=== PATIENT | male | born 1955 | race Caucasian/White ===

== ENCOUNTER 2022-07-14 11:06 | Emergency (ER) | payer OTHER, MEDICARE, SELFPAY ==
[2022-07-14] VITALS (14 sets, daily range): BP systolic 159–186; BP diastolic 77–84; PULSE 57–77; RESP 13–26; TEMP 36.7; O2SAT 93–97; BMI 37.8
--- NOTE | 2022-07-14 11:22 | DI.US.S_ITS ---
PROCEDURE: US ABDOMEN LIMITED INDICATIONS: RUQ PAIN TECHNIQUE: Real-time focused scanning was performed of the abdomen, with image documentation. COMPARISON: None. FINDINGS: Liver is diffusely echogenic, typically indicating the presence of diffuse hepatic steatosis. Gallbladder is unremarkable without gallstones or wall thickening or pain on examination. No dilated bile ducts. Common hepatic duct measures 3.3 mm. Visualized portions the pancreas are unremarkable. IMPRESSION: 1. Diffuse increased echogenicity of the liver typically indicates diffuse hepatic steatosis. 2. No evidence of gallstone disease. Dictated by: Mac Shepherd M.D. on 07/14/2022 at 13:45 Approved by: Mac Shepherd M.D. on 07/14/2022 at 13:46
--- NOTE | 2022-07-14 11:23 | DI.RAD.S_ITS ---
PROCEDURE: XR CHEST 1V INDICATIONS: chest pain TECHNIQUE: One view of the chest was acquired. COMPARISON: None. FINDINGS: Surgical changes and devices: None. Lungs and pleura: Lungs are clear. No pleural effusions or pneumothorax. Mediastinum: Mediastinal contours appear normal. Heart size is normal. Bones and chest wall: No suspicious bony lesions. Overlying soft tissues appear unremarkable. IMPRESSION: No evidence acute pulmonary process. Dictated by: Mac Shepherd M.D. on 07/14/2022 at 11:49 Approved by: Mac Shepherd M.D. on 07/14/2022 at 12:01
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
[2022-07-14 11:32] LABS: Add Manual Diff / Slide Review NO; Basophils Absolute Auto 100 /uL (0-100); Basophils Percent Auto 0.9 % (0-2); Eosinophils Absolute Auto 200 /uL (0-450); Hematocrit 44.1 % (41-53); Hemoglobin 14.8 g/dL (13.5-17.5); Lymphocytes Absolute Auto 1700 /uL (1100-4500); Mean Corpuscular HGB Conc 33.6 % (30-36); Mean Corpuscular Hemoglobin 31.6 PG (26-34); Monocytes Absolute Auto 700 /uL (0-900); Monocytes Percent Auto 7.4 % (3-14); Neutrophils Absolute Auto 6900 /uL (1500-7000); Neutrophils Percent Auto 71.7 % (50-75); Platelet Count 251 X10^3/uL (150-400); Red Blood Cell Count 4.69 X10^6/uL (4.5-5.9); Red Cell Distribution Width 13.4 % (11.6-14.8); White Blood Cell Count 9.6 X10^3/uL (4.5-11.0)
[2022-07-14 11:34] LABS: INR 1.2 (0.9-1.3); Prothrombin Time 13.3 SECONDS (10.1-12.7)
[2022-07-14] MEDS: KETOROLAC 30 MG/ML VIAL 15 MG IV (11:34)
[2022-07-14 11:37] LABS: PTT Partial Thromboplastin Tim 30 SECONDS (26-36)
[2022-07-14 11:39] LABS: Alanine Aminotransferase 27 IU/L (<50); Albumin 4.1 g/dL (3.5-5.0); Albumin Globulin Ratio 1.1 (1.0-2.8); Alkaline Phosphatase 64 U/L (38-126); Aspartate Aminotransferase 22 IU/L (17-59); BUN Creatinine Ratio 12.5 (6-22); Bilirubin Total 0.7 mg/dL (0.2-1.3); Blood Urea Nitrogen 12 mg/dL (9-20); Calcium 9.2 mg/dL (8.4-10.2); Carbon Dioxide 25 mmol/L (22-32); Chloride 106 mmol/L (98-107); Creatine Kinase 72 U/L (55-170); Estimated Glomerular Filt Rate > 60 mL/min (>60); Globulin 3.7 g/dL (1.7-4.1); Glucose 111 mg/dL (80-110); HEMOLYSIS < 15 (0-50); Lipase 63 U/L (23-300); Sodium 140 mmol/L (137-145); Total Protein 7.8 g/dL (6.3-8.2)
[2022-07-14 11:51] LABS: Troponin I < 0.012 ng/mL (0.01-0.034)
--- NOTE | 2022-07-14 14:02 | DI.CT.S_ITS ---
PROCEDURE: CT ABDOMEN PELVIS W CON INDICATIONS: RUQ pain, now radiates lower TECHNIQUE: After the administration of intravenous contrast, axial sections acquired from the lung bases to the pubic symphysis. Coronal and sagittal reformats were performed. For radiation dose reduction, the following was used: automated exposure control, adjustment of mA and/or kV according to patient size. COMPARISON: None. FINDINGS: Image quality: Excellent. Lung bases: Unremarkable. Heart: Normal heart size. Moderate coronary artery calcifications. ABDOMEN: Liver: Mild diffuse hepatic steatosis. No focal liver mass. Gallbladder: Unremarkable, without calcified gallstones. Biliary ducts: Unremarkable. Pancreas: Unremarkable. Spleen: Unremarkable. Adrenal Glands: Unremarkable. Kidneys and Ureters: Unremarkable. Stomach and Bowel: Stomach, small bowel loops, and colon are unremarkable. Peritoneum: No abnormal intraperitoneal fluid. No free air. Ventral Wall: No hernias. Abdominal Nodes: No retroperitoneal or mesenteric adenopathy by size criteria. Vessels: Aorta and inferior vena cava are normal in size. PELVIS: Pelvic Organs: Unremarkable. Bladder: Unremarkable. Pelvic Nodes: No enlarged lymph nodes. Miscellaneous: Small fat containing right inguinal hernia. Bones: Unremarkable. IMPRESSION: 1. No evidence of acute abdominal process. 2. Mild diffuse hepatic steatosis. 3. Small fat containing right inguinal hernia. Dictated by: Mac Shepherd M.D. on 07/14/2022 at 14:31 Approved by: Mac Shepherd M.D. on 07/14/2022 at 14:33
== END 2022-07-14 16:00 | disposition home or self-care (01) ==
PROVIDERS: Emergency Provider Emergency Medicine
DX: R10.11 Right upper quadrant pain (principal); R07.9 Chest pain, unspecified; K76.0 Fatty (change of) liver, not elsewhere classified
CPT/HCPCS: 36415; 71045; 74177; 76705; 80053; 81003; 82550; 83690; 84484; 85025; 85610; 85730; 93005; 96374; 99284; J1885; Q9967